=== PATIENT | male | born 1980 | race Caucasian/White ===

== ENCOUNTER 2025-05-25 23:52 | Emergency (ER) | payer OTHER ==
[2025-05-26] MEDS: Acetaminophen/HYDROcodone 325-5 MG Tab PO ONE (01:03)
== END 2025-05-26 00:43 | disposition home or self-care (01) ==
LOC: JD.ED 23:52
DX: S70.12XA Contusion of left thigh, initial encounter (principal); Y93.89 Activity, other specified; V48.0XXA Car driver injured in noncollision transport accident in nontraffic accident, initial encounter
CPT/HCPCS: 73552; 99283; A9270